=== PATIENT | female | born 1950 | race Asian ===

== ENCOUNTER 2021-12-30 07:24 | Day surgery (SDC) | payer OTHER, MEDICARE ==
[2021-12-23 09:22] VITALS: BMI 21.0
[2021-12-30] MEDS: CIPROFLOXACIN 0.3% EYE DROPS 5 ML BOTTLE ONE ×3 (07:50→08:00)
[2021-12-30] MEDS: CYCLOPENTOLATE 2% OPHTH SOLN 2 ML BOTTLE ONE ×3 (07:50→08:00)
[2021-12-30] MEDS: PHENYLEPHRINE 2.5% OPHTH SOLN 15 ML BOTTLE ONE ×3 (07:50→08:00)
[2021-12-30] MEDS: TROPICAMIDE 1% OPHTH SOLN 15 ML BOTTLE ONE ×3 (07:50→08:00)
[2021-12-30] MEDS ORDERED: EPINEPHrine/PF 1 MG/1 ML (1:1,000) AMPULE ONE (08:26)
[2021-12-30] MEDS ORDERED: BSS (NA/CA/MG/K) BALANCED SALT SOLUTION OPHTH SOLN 15 ML BOTTLE ONE (08:26)
[2021-12-30] MEDS ORDERED: LIDOCAINE HCL/PF 1% SDV 5ML VIAL ONE (08:26)
[2021-12-30] MEDS ORDERED: CARBACHOL 0.01% INTRA-OCULAR 1.5 ML VIAL ONE (08:27)
[2021-12-30] MEDS ORDERED: NEO/POLYMYX B SULF/DEXAMETH OPHTHALMIC 5ML BOTTLE ONE (08:27)
[2021-12-30] MEDS ORDERED: MIDAZOLAM HCL 2 MG/2 ML SINGLE DOSE VIAL ONE (09:08)
[2021-12-30 09:55] VITALS: TEMP 98
[2021-12-30 10:20] VITALS: BP 147/72; PULSE 89
== END 2021-12-30 10:15 | disposition home or self-care (01) ==
LOC: FASU 07:24
PROVIDERS: ATTEND Ophthalmology
PROC: 08RK3JZ Replacement of Left Lens with Synthetic Substitute, Percutaneous Approach (ICD-10-PCS; principal; 2021-12-30 09:12)
DX: H26.8 Other specified cataract (principal)
CPT/HCPCS: 66984; V2632; 82962

== ENCOUNTER 2022-03-17 08:02 | Day surgery (SDC) | payer OTHER, MEDICARE ==
[2022-03-12 10:41] VITALS: BMI 20.8
[2022-03-17] MEDS: PHENYLEPHRINE 2.5% OPHTH SOLN 15 ML BOTTLE ONE ×3 (08:15→08:25)
[2022-03-17] MEDS: CYCLOPENTOLATE 2% OPHTH SOLN 2 ML BOTTLE ONE ×3 (08:15→08:25)
[2022-03-17] MEDS: CIPROFLOXACIN 0.3% EYE DROPS 5 ML BOTTLE ONE ×3 (08:15→08:25)
[2022-03-17] MEDS: TROPICAMIDE 1% OPHTH SOLN 15 ML BOTTLE ONE ×3 (08:15→08:25)
[2022-03-17] MEDS ORDERED: BSS (NA/CA/MG/K) BALANCED SALT SOLUTION OPHTH SOLN 15 ML BOTTLE ONE (08:55)
[2022-03-17] MEDS ORDERED: CARBACHOL 0.01% INTRA-OCULAR 1.5 ML VIAL ONE (08:55)
[2022-03-17] MEDS ORDERED: TETRACAINE 0.5% OPHTH SOLN 2 ML BOTTLE ONE (08:55)
[2022-03-17] MEDS ORDERED: NEO/POLYMYX B SULF/DEXAMETH OPHTHALMIC 5ML BOTTLE ONE (08:55)
[2022-03-17 11:26] VITALS: RESP 18; TEMP 98.1
[2022-03-17 11:57] VITALS: BP 124/67; PULSE 76
== END 2022-03-17 11:00 | disposition home or self-care (01) ==
LOC: FASU 08:02
PROVIDERS: ATTEND Ophthalmology
PROC: 08RJ3JZ Replacement of Right Lens with Synthetic Substitute, Percutaneous Approach (ICD-10-PCS; principal; 2022-03-17 10:07)
DX: H26.8 Other specified cataract (principal)
CPT/HCPCS: 66984; V2632; 82962

== ENCOUNTER 2024-01-04 07:03 | Day surgery (SDC) | payer OTHER, MEDICARE ==
[2024-01-04 08:05] VITALS: BMI 20.6
[2024-01-04] MEDS ORDERED: BUPIVACAINE HCL/PF 0.5% (5MG/ML) 10 ML VIAL ONE (09:14)
[2024-01-04] MEDS ORDERED: MIDAZOLAM HCL 2 MG/2 ML SINGLE DOSE VIAL ONE ×3 (09:14→10:43)
[2024-01-04] MEDS ORDERED: BUPIVACAINE LIPOSOME/PF (EXPAREL) 266 MG/20 ML VIAL ONE (09:14)
[2024-01-04] MEDS ORDERED: FENTANYL CITRATE/PF 50 MCG/ML VIAL ONE (09:14)
[2024-01-04] MEDS ORDERED: ONDANSETRON 4 MG/2 ML VIAL ONE ×2 (09:23→10:55)
[2024-01-04] MEDS ORDERED: DEXAMETHASONE SOD PHOSPHATE 4 MG/1 ML VIAL ONE (09:23)
[2024-01-04] MEDS ORDERED: ceFAZolin SODIUM 1 GM VIAL ONE (10:22)
[2024-01-04] MEDS ORDERED: TRANEXAMIC ACID 1000 MG/10 ML VIAL ONE ×2 (10:29→11:18)
[2024-01-04] MEDS ORDERED: PROPOFOL 20 ML ONE ×2 (10:33→11:46)
[2024-01-04] MEDS ORDERED: ACETAMINOPHEN INJECTION 100 ML IVPB ONE (11:30)
[2024-01-04] MEDS ORDERED: MAGNESIUM HYDROX 2400MG/30ML ORAL SUSPENSION 30 ML CUP PO PRN ×2 (12:19→13:12)
[2024-01-04] MEDS ORDERED: oxyCODONE HCL 5 MG TABLET PO PRN ×3 (12:19→13:03)
[2024-01-04] MEDS ORDERED: MAG HYDROX/AL HYDROX/SIMETH 30 ML UNIT-DOSE CUP PO PRN ×2 (12:19→13:12)
[2024-01-04] MEDS ORDERED: ONDANSETRON 4 MG/2 ML VIAL IVPUSH PRN ×3 (12:19→13:12)
[2024-01-04] MEDS ORDERED: LACTATED RINGERS SOLUTION 1,000 ML IV SCH (12:30)
[2024-01-04] MEDS: LACTATED RINGERS SOLUTION 1,000 ML IV SCH (13:56)
[2024-01-04] MEDS: CEFAZOLIN 2 GM in DEXTROSE 5%-WATER - 100 ML IVPB ONE (13:57)
[2024-01-04] MEDS ORDERED: ACETAMINOPHEN 1000 MG/100 ML BAG IVPB SCH (16:00)
[2024-01-04] MEDS: ACETAMINOPHEN 1000 MG/100 ML BAG IVPB SCH (16:59)
[2024-01-04] MEDS: CEFAZOLIN SODIUM 2 GM in DEXTROSE 5%-WATER 100 ML IVPB SCH (17:01)
[2024-01-04] MEDS ORDERED: CEFAZOLIN SODIUM 2 GM in DEXTROSE 5%-WATER 100 ML IVPB SCH (18:00)
[2024-01-04] MEDS: oxyCODONE HCL 5 MG TABLET PO PRN (19:13)
[2024-01-04] MEDS ORDERED: FAMOTIDINE 20 MG TABLET PO SCH (22:00)
[2024-01-04] MEDS ORDERED: DEXAMETHASONE 4 MG TABLET (FP) PO SCH (22:00)
[2024-01-04] MEDS ORDERED: TRANEXAMIC ACID 1000 MG/10 ML VIAL IVPB SCH (22:00)
[2024-01-04] MEDS ORDERED: oxyCODONE HCL 10 MG SUSTAINED ACTING TABLET PO SCH (22:00)
[2024-01-04] MEDS ORDERED: SENNOSIDES/DOCUSATE COMBO (SENNA PLUS) TABLET (UD) PO SCH (22:00)
[2024-01-04] MEDS ORDERED: ASPIRIN 81 MG CHEWABLE TABLETS PO SCH (22:00)
[2024-01-04] MEDS: SENNOSIDES/DOCUSATE COMBO (SENNA PLUS) TABLET (UD) PO SCH (22:03)
[2024-01-04] MEDS: FAMOTIDINE 20 MG TABLET PO SCH (22:03)
[2024-01-04] MEDS: oxyCODONE HCL 10 MG SUSTAINED ACTING TABLET PO SCH (22:04)
[2024-01-04] MEDS: DEXAMETHASONE 4 MG TABLET (FP) PO SCH (22:04)
[2024-01-04] MEDS: TRANEXAMIC ACID 1000 MG/10 ML VIAL IVPUSH SCH (23:39)
[2024-01-04] MEDS: ASPIRIN 81 MG CHEWABLE TABLETS PO SCH (23:39)
[2024-01-05] MEDS: MULTIVITAMINS (DAILY MVI) TABLET (FP) PO SCH ×2 (09:52→11:13)
[2024-01-05] MEDS: ROSUVASTATIN CA 5 MG TABLET PO SCH (09:52)
[2024-01-05] MEDS: VALSARTAN 160 MG TABLET PO SCH (09:52)
[2024-01-05] MEDS: HYDROCHLOROTHIAZIDE 12.5 MG CAPSULE (FP) PO SCH (09:53)
[2024-01-05] MEDS ORDERED: MULTIVITAMINS (DAILY MVI) TABLET (FP) PO SCH (10:00)
[2024-01-05] MEDS: ACETAMINOPHEN 500 MG TABLET (FP) PO SCH (11:12)
[2024-01-05] MEDS: CELECOXIB 100 MG CAPSULE PO SCH (11:17)
[2024-01-05] MEDS: DEXAMETHASONE 4 MG TABLET (FP) PO SCH (22:14)
[2024-01-05 22:34] VITALS: RESP 18
[2024-01-06] MEDS: CEPHALEXIN MONOHYDRATE 250 MG CAPSULE (FP) PO SCH (00:38)
[2024-01-06 10:06] VITALS: BP 129/69; PULSE 85; TEMP 97.7
== END 2024-01-06 13:36 ==
LOC: UNDOADMIN 07:03 → FASU 07:03 → FASUSAT 07:03 → FM/S 07:03 → EDSTATUS 07:30 → FM/S 12:22 → FASUSAT 01-06 13:36
PROVIDERS: ATTEND Orthopaedic Surgery
PROC: 0SRC0J9 Replacement of Right Knee Joint with Synthetic Substitute, Cemented, Open Approach (ICD-10-PCS; principal; 2024-01-04 10:39)
DX: M17.11 Unilateral primary osteoarthritis, right knee (principal)
CPT/HCPCS: 27447; C1776; 70450-TC; 73560-TC-RT-FY; 82962; 94760; 97010-GP; 97116-GP; 97161-GP; J0131